=== PATIENT | male | born 1990 | race Caucasian/White ===

== ENCOUNTER 2019-07-22 07:16 | Emergency (ER) | payer OTHER ==
[2019-07-22] MEDS ORDERED: NS 0.9% 1000 ML** 1,000 ML IV ONE (07:24)
--- NOTE | 2019-07-22 07:31 | ED ---
Syncope/Near Syncope - HPI Summary HPI Summary: Patient is a 29 y/o M presenting to [facility] with complaints of syncope. Patient reports that he went to the bathroom this morning and was in the shower when he began to feel light-headed. The patient subsequently experienced a syncopal episode. found the patient and helped him out of the shower. He reports feeling nauseous at the time. had helped the patient to the toilet and he reports another syncopal episode. reports that the patient's eyes were open but he was not responding for 4-5 minutes. The patient reports no memory of the episodes. He notes that he is no longer dizzy or nauseous. He denies experiencing CP, SOB, palpitations, visual changes. Patient is unsure of head injury but denies ROCHA and neck pain. 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 However, he states that this condition is under control with his Nexium, 20 mg. Patient notes that he consumed alcohol last night, estimating 3 beers. He is a non-smoker. FMHx of syncope is denied. Home mediations and allergies are reviewed. - History Of Current Complaint Time Seen by Provider: 07/22/19 07:18 Hx Obtained From: Patient, Family/Workers' Compensation Claims Examiner Onset/Duration: Resolved Timing: Intermittent Episode Lasting Context: Witnessed Associated Head Trauma: No Associated Signs And Symptoms: Dizzy, Other - positive - nausea, memory loss; negative - CP, SOB, neck pain, ROCHA, dizziness, visual changes, palpitations - Allergies/Home Medications Allergies/Adverse Reactions: Allergies Allergy/AdvReac Type Severity Reaction Status Date / Time Cephalosporins Allergy Rash Verified 07/22/19 07:31 Penicillins Allergy Rash Verified 07/22/19 07:31 Sulfa (Sulfonamide Allergy Rash Verified 07/22/19 07:31 Antibiotics) PMH/Surg Hx/FS Hx/Imm Hx Endocrine/Hematology History: Reports: Hx Anemia GI History: Reports: Hx Ulcer Sensory History: Denies: Hx Legally Blind, Hx Deafness Opthamlomology History: Denies: Hx Legally Blind EENT History: Denies: Hx Deafness - Family History Known Family History: Positive: Other - none of syncope - Social History Alcohol Use: None Substance Use Type: Reports: None Smoking Status (MU): Never Smoked Tobacco Review of Systems Eyes: Other - negative - visual changes Negative: Palpitations, Chest Pain Negative: Shortness Of Breath Positive: Nausea - since resolved Musculoskeletal: Other - negative - neck pain Neurological: Other - positive - dizziness, since resolved; memory loss Positive: Headache, Syncope All Other Systems Reviewed And Are Negative: Yes Physical Exam - Summary Physical Exam Summary: VITAL SIGNS: Reviewed. GENERAL: Patient is a well-developed and nourished male who is lying comfortable in the stretcher. Patient is not in any acute respiratory distress. HEAD AND FACE: No signs of trauma. No ecchymosis, hematomas or skull depressions. No sinus tenderness. EYES: PERRLA, EOMI x 2, No injected conjunctiva, no nystagmus. EARS: Hearing grossly intact. Ear canals and tympanic membranes are within normal limits. MOUTH: Oropharynx within normal limits. NECK: Supple, trachea is midline, no adenopathy, no JVD, no carotid bruit, no c- spine tenderness, neck with full ROM. CHEST: Symmetric, no tenderness at palpation. LUNGS: Clear to auscultation bilaterally. No wheezing or crackles. CVS: Regular rate and rhythm, S1 and S2 present, no murmurs or gallops appreciated. ABDOMEN: Soft, non-tender. No signs of distention. No rebound, no guarding, and no masses palpated. Bowel sounds are normal. EXTREMITIES: FROM in all major joints, no edema, no cyanosis or clubbing. NEURO: Alert and oriented x 3. No acute neurological deficits. Speech is normal and follows commands. SKIN: Dry and warm. Triage Information Reviewed: Yes Vital Signs Reviewed: Yes Procedures - Sedation Patient Received Moderate/Deep Sedation with Procedure: No Diagnostics - Laboratory Result Diagrams: 07/22/19 07:37 07/22/19 07:37 Lab Statement: Any lab studies that have been ordered have been reviewed, and results considered in the medical decision making process. - Radiology CXR Radiology Interpretation Completed By: Radiologist Summary of Radiographic Findings: CXR IMPRESSION: No acute cardiopulmonary process by radiograph. THIS REPORT WAS REVIEWED BY ED PHYSICIAN. - CT BRAIN CT CT Interpretation Completed By: Radiologist Summary of CT Findings: BRAIN CT IMPRESSION: No acute intracranial abnormality. THIS REPORT WAS REVIEWED BY ED PHYSICIAN. - EKG 0739 Cardiac Rate: NL - rate of 81 BPM EKG Rhythm: Sinus Rhythm Summary of EKG Findings: EKG showed NSR with rate of 81 BPM, no STEMI, no ST elevations, normal axis. This EKG was reviewed and interpreted by ED physician. Re-Evaluation - Re-Evaluation First Eval Re-Evaluation Time: 09:19 Comment: At this point the patient is stable. Course/Dx Assessment/Plan: This patient is a 29-year-old male who presents to the emergency room via ambulance with a chief complaint of a syncopal episode. Patient denies any headache, dizziness, visual changes, chest pain or palpitations or shortness of breath. Patient reports that he had 3 beers last night. Patient has a history of syncopal episodes. He reports it is secondary to anemia and vasovagal syncope. In the ED course the patient was alert oriented 3. He has no complaints. In the ED course the patient was placed in a monitoring and evaluation advisor, IV access was obtained, IV fluids started. Blood test w/o a significant abnormality except for alcohol level of 14. Chest x-ray impression : No acute cardiopulmonary process. Head CT impression: No acute interconnected abnormality. In the ED course the patient has remained stable. Patient has no complaints and he is asymptomatic. I believe the patient became dehydrated and with alcohol intoxication he had a syncopal episode. At this point the patient is stable. At this point, I discussed all the findings and test results with the patient. Patient was instructed to return to the emergency room immediately if any of the symptoms return or worsen.Plan of care was discussed with the patient and patient understands and agrees. All questions were answered at patient satisfaction. Patient understands and agrees. Neurological exam before discharge: Patient is alert and oriented x 3. No acute neurological deficits. Patient's vital signs are stable. Patient is to follow up with PCP in the next 2 3 days. They understand and agree. The plan of care was discussed with the patient and patient understands and agrees with the plan of care. All questions were answered at patient satisfaction. There were no further complaints or concerns. - Diagnoses Differential Diagnosis/HQI/PQRI: Positive: Cerebral Vascular Accident, Dysrhythmia, GI Bleed, Hypoglycemia, Metabolic Reaction, Myocardial Infarction, Seizure, Transient Ischemic Attack, Vasovagal Episode Provider Diagnoses: Vasovagal syncope, Alcohol intoxication Discharge ED - Sign-Out/Discharge Documenting (check all that apply): Patient Departure - discharge - Discharge Plan Condition: Stable Disposition: HOME Patient Education Materials: Syncope (ED), Alcohol Intoxication (ED) Referrals: [facility] [Outside] - 3 Days Additional Instructions: PLEASE RETURN TO ED FOR ANY NEW OR CONCERNING SYMPTOMS. PLEASE FOLLOW UP WITH YOUR PRIMARY CARE PHYSICIAN WITHIN THREE DAYS. - Billing Disposition and Condition Condition: STABLE Disposition: Home - Attestation Statements Document Initiated by Scribe: Yes Documenting Scribe: GITA MORALES Provider For Whom Scribe is Documenting (Include Credential): MALINDA MOSER MD Scribe Attestation: IGITA, scribed for MALINDA MOSER MD on 07/22/19 at 1840. Scribe Documentation Reviewed: Yes Provider Attestation: The documentation as recorded by the GITA jones accurately reflects the service I personally performed and the decisions made by me, MALINAD MOSER MD Status of Scribe Document: Viewed
[2019-07-22 07:47] LABS: ABS Eosinophils 0.2 10^3/ul (0-0.6); ABS Lymphocytes 1.7 10^3/ul (1.0-4.8); ABS Monocytes 0.4 10^3/ul (0-0.8); ABS Neutrophils 4.7 10^3/ul (1.5-7.7); Eosinophil % 2.8 %; Hematocrit 44 % (42-52); Hemoglobin 15.2 g/dL (14.0-18.0); Lymphocyte % 23.5 %; Mean Corpuscular HGB Conc 34 g/dL (31-36); Mean Corpuscular Hemoglobin 30 pg (27-31); Mean Corpuscular Volume 86 fL (80-94); Mean Platelet Volume 8.7 fL (7.4-10.4); Nucleated Red Blood Cells % 0.1; Platelet Count 175 10^3/uL (150-450); Red Blood Count 5.13 10^6 /uL (4.18-5.48); Red Cell Distribution Width 14 % (10-15)
[2019-07-22 08:04] LABS: ALT 11 U/L (7-52); AST 17 U/L (13-39); Albumin 4.4 g/dL (3.2-5.2); Albumin/Globulin Ratio 1.9 (1-3); Alkaline Phosphatase 44 U/L (34-104); Anion Gap 8 mmol/L (2-11); BUN/Creatinine Ratio 12.7 (8-20); Blood Urea Nitrogen 10 mg/dL (6-24); C Reactive Protein < 1.00 mg/L (<8.01); CO2 Carbon Dioxide 27 mmol/L (22-32); Calcium 9.2 mg/dL (8.6-10.3); Chloride 108 mmol/L (101-111); Creatine Kinase 56 U/L (10-223); EGFR African American 142.4 (>60); EGFR Non-African American 117.7 (>60); Globulin 2.3 g/dL (2-4); Glucose 84 mg/dL (70-100); Magnesium 1.9 mg/dL (1.9-2.7); Potassium 3.8 mmol/L (3.5-5.0); Sodium 143 mmol/L (135-145); Total Protein 6.7 g/dL (6.4-8.9)
[2019-07-22 08:25] LABS: Alcohol 14 mg/dL (<10)
[2019-07-22 09:27] LABS: Urine Appearance Cloudy; Urine Bilirubin Negative (Negative); Urine Blood Negative (Negative); Urine Color Yellow; Urine Glucose Negative (Negative); Urine Ketones Negative (Negative); Urine Nitrite Negative (Negative); Urine Protein Negative (Negative); Urine Specific Gravity 1.012 (1.010-1.030); Urine Urobilinogen Negative (Negative)
[2019-07-22 09:30] VITALS: BP 119/71
[2019-07-22 09:49] LABS: Urine Benzodiazepine Screen None Detected (None Detect); Urine Opiates Screen None Detected (None Detect)
== END 2019-07-22 09:31 | disposition home or self-care (01) ==
LOC: ED 07:16
DX: R55 Syncope and collapse (principal); F10.129 Alcohol abuse with intoxication, unspecified; Y90.0 Blood alcohol level of less than 20 mg/100 ml; R41.3 Other amnesia; Z88.1 Allergy status to other antibiotic agents; Z88.0 Allergy status to penicillin; Z88.2 Allergy status to sulfonamides
CPT/HCPCS: 36415; 70450; 71046; 80053; 80307; 80320; 81003; 82550; 83605; 83735; 83880; 84443; 84484; 85025; 86140; 93005; 96360; 96361; 99282; G0480